=== PATIENT | male | born 1945 | race Caucasian/White ===

== ENCOUNTER 2016-07-14 09:27 | Inpatient (IN) | payer OTHER ==
[2016-07-14] MEDS ORDERED: NS 1,000 ML IV ONE ×2 (09:33→12:01)
--- NOTE | 2016-07-14 09:36 | EDPHY ---
H & P Time Seen by Provider: 07/14/16 09:32 HPI/ROS: CHIEF COMPLAINT: Confusion, fever HISTORY OF PRESENT ILLNESS: History obtained from the paramedics. This is a 71 -year-old male with a reported history of dementia, insulin-dependent diabetes, and metastatic leukemia for which he is on chemotherapy. His called paramedics this morning when she noted that her had increasing confusion. She checked his temperature and found it to be 103. He was given an aspirin at home. The patient himself has no complaints. REVIEW OF SYSTEMS: Patient unable to provide due to his dementia. Source: Patient, Family, EMS - Medical/Surgical History Hx Asthma: No Hx Chronic Respiratory Disease: No Hx Diabetes: Yes Hx Cardiac Disease: No Hx Renal Disease: No Hx Cirrhosis: No Hx Alcoholism: No Hx HIV/AIDS: No Hx Splenectomy or Spleen Trauma: No Other PMH: !. CML. 2. Dementia. 3. IDDM. 4. HTN. 5. Hyperlipidemia - Social History Smoking Status: Former smoker Additional Social History: He lives with his in [place], [place]. He tells me that he drinks some wine daily. - Physical Exam Exam: General Appearance: Alert. Vital signs reviewed. Blood pressure 156/54 on arrival. Temperature 38. Eyes: Pupils equal and round, no conjunctival injection, no discharge. Anicteric. ENT, Mouth: Mucous membranes are moist, no oropharyngeal erythema or edema. Neck: No lymphadenopathy, supple. Respiratory: Lungs are clear to auscultation; no wheezes, rales, or rhonchi. Cardiovascular: Regular rate and rhythm; no murmur, rub, or gallop. Gastrointestinal: Abdomen is soft and nontender, no masses or organomegaly, bowel sounds normal. Skin: Warm and dry, no rashes on exposed skin, normal color. Back: Nontender to palpation over the thoracolumbar spine. No CVAT. Extremities: No lower extremity edema, no calf tenderness or swelling. Neurological: Alert and oriented to person only. He confabulates when questioned.Moving all four extremities easily and equally. Strength 5/5 all major motor groups. Sensation intact to light touch over all four extremities. Psychiatric: Pleasant. No agitation. Constitutional: Initial Vital Signs Temperature (C) 38.0 C 07/14/16 09:33 Heart Rate 103 H 07/14/16 09:33 Respiratory Rate 18 07/14/16 09:33 Blood Pressure 156/54 H 07/14/16 09:33 O2 Sat (%) 90 L 07/14/16 09:33 O2 Delivery Mode Room Air Allergies/Adverse Reactions: No Known Allergies Allergy (Verified 10/10/15 15:47) Home Medications: Medication Instructions Recorded Ascorbic Acid [Vitamin C 500 mg 1,000 mg PO DAILY 07/14/16 (*)] Calcium Carb W/Vit D [Calcium Carb 500 mg PO DAILY 07/14/16 W/Vit D 500/200 (*)] Cholecalciferol Vit D3 [Vitamin D3 1,000 units PO DAILY 07/14/16 (*)] Donepezil HCl 10 mg PO DAILY 07/14/16 Insulin Glargine [Lantus 100 24 units SC DAILY 07/14/16 UNITS/ML (*)] Insulin Lispro [humALOG LISPRO 100 10 unit SC DAILY PRN 07/14/16 units/ml (*)] Levothyroxine [Synthroid 112 mcg 112 mcg PO DAILY06 07/14/16 (*)] Simvastatin 40 mg PO HS 07/14/16 Vitamin B Complex [B Complex] 1 tab PO DAILY 07/14/16 Azithromycin [Zithromax] 500 mg PO DAILY #5 tablet 07/16/16 Cefuroxime Axetil [Ceftin (*)] 500 mg PO BID #20 tab 07/16/16 Oseltamivir Phosphate [Tamiflu 75 75 mg PO BIDMEAL #6 cap 07/16/16 mg (*)] Medical Decision Making - Diagnostics Imaging: CXR reveiwed by me in PACS. It shows a right mid lobe pneumonia. ED Course/Re-evaluation: 71-year-old male with leukemia, not currently receiving chemotherapy (refused chemotherapy last month). He comes in this morning with fever and worsening confusion. His tells me that he has had a cough that began yesterday. He was noted to be mildly tachypneic and febrile on arrival. Breath sounds were diminished on the right with rhonchi. It was my impression that he likely had an infection with sepsis. He was given Tylenol for fever. Initial lactate was 2.4. White blood cell count mildly elevated. Chest x-ray shows a right midlung infiltrate. He meets criteria for severe sepsis. Based upon an initial presumed weight 70 kg two liters of IV normal saline were ordered in the emergency departmetn (he received some fluids enroute and will have recieved 30 mg/kg IV after the two liters). Repeat lactate was normal. He was given ceftriaxone and azithromycin intravenously for community acquired pneumonia. He is not currently undergoing chemotherapy and is not neutropenic.He is being admitted to the hospitalist service. On repeat examination at approximately 10:00 a.m. is resting comfortably. He has not been hypotensive. He has no new complaints. At approximately noon his temperature, checked by me, is 37.8. He continues to rest comfortably. He is not tachycardic. Differential Diagnosis: Fever in adults including but not limited to pneumonia, urinary tract infection , viral syndrome, and influenza. - Data Points Laboratory Results: Laboratory Results 07/14/16 09:45 07/14/16 09:40 Microbiology Results: MICROBIOLOGY 07/14/16 09:45 Blood Blood Culture - Preliminary 07/14/16 10:20 Blood Blood Culture - Preliminary Medications Given: Discontinued Medications Sodium Chloride (Ns) 1,000 mls @ 0 mls/hr IV ONCE ONE PRN Reason: Wide Open Stop: 07/14/16 09:34 Last Admin: 07/14/16 09:56 Dose: 1,000 mls Azithromycin 500 mg/ Dextrose 255 mls @ 255 mls/hr IV EDNOW ONE PRN Reason: Protocol Stop: 07/14/16 12:11 Last Admin: 07/14/16 13:19 Dose: 255 mls Ceftriaxone Sodium/Dextrose (Rocephin 1 Gm (Premix)) 50 mls @ 100 mls/hr IV EDNOW ONE PRN Reason: Protocol Stop: 07/14/16 11:41 Last Admin: 07/14/16 11:25 Dose: 50 mls Sodium Chloride (Ns) 1,000 mls @ 0 mls/hr IV ONCE ONE PRN Reason: Wide Open Stop: 07/14/16 12:02 Last Admin: 07/14/16 12:10 Dose: 1,000 mls Sodium Chloride (Ns) 1,000 mls @ 100 mls/hr IV CONT ALDAIR Stop: 01/10/17 14:14 Last Admin: 07/15/16 08:08 Dose: 1,000 mls Departure - Departure Disposition: [facility] Inpatient Acute Clinical Impression: Pneumonia Qualifiers: Pneumonia type: due to unspecified organism Laterality: right Lung location: middle lobe of lung Qualified Code(s): J18.1 - Lobar pneumonia, unspecified organism Condition: Fair
[2016-07-14 10:03] LABS: ADD DIFF? YES; ADD MORPH? NO; ADD SCAN? NO; ATYPICAL LYMPHOCYTE FLAG 0 (0-99); FRAGMENT RBC FLAG 0 (0-99); HEMATOCRIT 33.9 % (40.0-51.0); HEMOGLOBIN 12.1 g/dL (13.7-17.5); LEFT SHIFT FLG 0 (0-99); LIPEMIA HEMOLYSIS FLAG 90 (0-99); MEAN CELL HEMOGLOBIN 34.2 pg (27.9-34.1); MEAN CELL HEMOGLOBIN CONCENTR. 35.7 g/dL (32.4-36.7); MEAN CELL VOLUME 95.8 fL (81.5-99.8); MEAN PLATELET VOLUME 12.4 fL (8.7-11.7); PLATELET CLUMPS FLAG 10 (0-99); PLATELET COUNT 109 10^3/uL (150-400); RED BLOOD CELL COUNT 3.54 10^6/uL (4.40-6.38); RED CELL DISTRIBUTION WIDTH 12.3 % (11.5-15.2)
[2016-07-14 10:16] LABS: ANION GAP 14 mEq/L (8-16); BILIRUBIN,TOTAL 1.1 mg/dL (0.1-1.4); CARBON DIOXIDE 19 mEq/l (22-31); CHLORIDE 102 mEq/L (97-110); CREATININE 1.2 mg/dL (0.7-1.3); GLOMERULAR FILTRATION RATE 59; GLUCOSE 372 mg/dL (70-100); SODIUM 135 mEq/L (134-144)
[2016-07-14 10:38] LABS: PLATELET ESTIMATE DECREASED (ADEQ)
[2016-07-14 10:51] LABS: INR 1.18 (0.83-1.16)
[2016-07-14 10:52] LABS: APTT 23.3 SEC (23.0-38.0)
[2016-07-14 10:59] LABS: LACGHOST ORDER
[2016-07-14] MEDS ORDERED: AZITHROMYCIN IV 500 MG in D5W 250 ML IV ONE (11:12)
[2016-07-14 12:45] LABS: COLOR YELLOW; LEUKOCYTE ESTERASE,URINE NEGATIVE (NEGATIVE); NITRITE,URINE NEGATIVE (NEGATIVE)
[2016-07-14 12:49] LABS: MUCUS TRACE /lpf (NONE-1+)
[2016-07-14] MEDS ORDERED: ONDANSETRON 4 MG/2 ML VIAL IVP PRN (14:01)
[2016-07-14] MEDS ORDERED: ACETAMINOPHEN 325 MG TAB PO PRN (14:01)
--- NOTE | 2016-07-14 14:36 | GHP ---
[f rep st] HISTORY AND PHYSICAL DATE OF ADMISSION: 07/14/2016 CHIEF COMPLAINT: Fever and confusion. HISTORY OF PRESENT ILLNESS: The patient is a 71-year-old male with advanced dementia, lives with sc s . She noted him to have increasing confusion, and he had a fever at home of 103. The is currently in transit going home and not currently available. The patient is quite pleasant but con fabulatory, an unreliable historian. He denies any cough or any other significant recent illnesses, but he is also completely disoriented regarding time and space. He is currently without complaints and states that he feels quite well. PAST MEDICAL HISTORY: 1. CML by chart review; he is refusing chemotherapy. 2. Dementia. 3. Diabetes. 4. Hypertension. 5. Hyperlipidemia. MEDICATIONS: Please see computer record for full detailed list. ALLERGIES: No known drug allergies. SOCIAL HISTORY: He states he used smoke. He claims half a glass of wine per day. He lives with sc s . REVIEW OF SYSTEMS: Complete review of systems obtained. Review of systems is negative regarding co nstitutional, HEENT, GI, pulmonary, cardiovascular, , hematology, skin, musculoskeletal, endocrine , and psychiatric, except for positives as noted in HPI. FAMILY HISTORY: Not reliable due to patient's advanced dementia. PHYSICAL EXAMINATION: GENERAL: Well-developed, well-nourished male, in no acute distress. VITAL S IGNS: Temperature is 38.0, pulse 103, blood pressure 119/59, saturating 91% on 2 L. EYES: Normal conjunctivae. Pupils react to light. ENT: Normal ears and nose. Hearing intact. Normal lips and teeth. Oropharynx moist. NECK: Trachea midline. No thyromegaly. CHEST: Normal respiratory eff ort. LUNGS: Clear to auscultation bilaterally. CARDIOVASCULAR: Regular rate and rhythm. No murm ur. No lower extremity edema. ABDOMEN: Soft, nontender. No hepatosplenomegaly. SKIN: Warm, dry , intact. No rash. MUSCULOSKELETAL: No cyanosis or clubbing. Strength 5/5 upper and lower extrem ities. NEUROLOGIC: Cranial nerves intact. Normal sensation to light touch. PSYCH: He is alert a nd oriented x1, is very pleasant, confabulatory, friendly. When asked any type of question, he trie s to look up at the white board and reads what it states on the white board and then makes a funny j modesto as to why it is the wrong answer. Poor judgment and insight. Poor memory. LABORATORY DATA: White count 11.9, hematocrit 33.9, platelets 109. Sodium 135, potassium 4.0, chlo ride 102, bicarb 19, BUN 21, creatinine 1.2, glucose 372. Lactate 2.4, urinalysis negative. INR is 1.18. Chest x-ray reviewed by me. My personal interpretation is right-sided infiltrate. ASSESSMENT/PLAN: 1. Pneumonia with severe sepsis. I suspect this is a community-acquired pneumonia. Will continue ceftriaxone and azithromycin. 2. Metabolic encephalopathy. He is confused beyond his normal baseline dementia. 3. Dementia. I suspect this is quite advanced. 4. Chronic myelogenous leukemia. According to ER reports, he has refused chemotherapy recently. T his can be clarified when his is available. 5. Diabetes type 2. We will place on an insulin sliding scale for now. Hydrate with IV fluids and reconcile home medications. CODE STATUS: Full, although this is by default and should clarify code status when his is angela malloy. ADMISSION STATUS: I will admit to inpatient as I anticipate he will require greater than 2 midnight s for stability to return home. DVT PROPHYLAXIS: He is high risk. I will place him on subcu Lovenox. /[id number]/MODL
[2016-07-14] MEDS ORDERED: D50W 25 GM/50 ML SYR IVP PRN (19:27)
[2016-07-14] MEDS: NS 1,000 ML IV SCH (20:40)
[2016-07-14] MEDS: INSULIN GLARGINE 100 UNITS/ML SYRINGE SC SCH (20:40)
[2016-07-14] MEDS: OSELTAMIVIR PHOSPHATE 75 MG CAP PO SCH (20:41)
[2016-07-14] MEDS: ATORVASTATIN CALCIUM 20 MG TAB PO SCH (20:41)
[2016-07-15] MEDS: traZODone 50 MG TAB PO SCH ×2 (01:45→21:09)
[2016-07-15] MEDS: LEVOTHYROXINE 112 MCG TAB PO SCH (04:41)
[2016-07-15 05:14] LABS: ADD DIFF? YES; ADD MORPH? NO; ADD SCAN? NO; ATYPICAL LYMPHOCYTE FLAG 0 (0-99); FRAGMENT RBC FLAG 0 (0-99); HEMATOCRIT 28.5 % (40.0-51.0); HEMOGLOBIN 9.9 g/dL (13.7-17.5); LEFT SHIFT FLG 10 (0-99); LIPEMIA HEMOLYSIS FLAG 90 (0-99); MEAN CELL HEMOGLOBIN 34.7 pg (27.9-34.1); MEAN CELL HEMOGLOBIN CONCENTR. 34.7 g/dL (32.4-36.7); MEAN PLATELET VOLUME 12.6 fL (8.7-11.7); PLATELET CLUMPS FLAG 10 (0-99); PLATELET COUNT 97 10^3/uL (150-400); RED BLOOD CELL COUNT 2.85 10^6/uL (4.40-6.38); RED CELL DISTRIBUTION WIDTH 12.4 % (11.5-15.2)
[2016-07-15 05:31] LABS: ANION GAP 11 mEq/L (8-16); CARBON DIOXIDE 18 mEq/l (22-31); CHLORIDE 103 mEq/L (97-110); CREATININE 1.2 mg/dL (0.7-1.3); GLOMERULAR FILTRATION RATE 59; GLUCOSE 242 mg/dL (70-100); SODIUM 132 mEq/L (134-144)
[2016-07-15 06:54] LABS: PLATELET ESTIMATE DECREASED (ADEQ)
[2016-07-15 06:55] LABS: MACROCYTES 1+
[2016-07-15 06:56] LABS: HYPOCHROMIA 1+
[2016-07-15] MEDS: NS 1,000 ML IV SCH (08:08)
[2016-07-15] MEDS: AZITHROMYCIN IV 500 MG in D5W 250 ML IV SCH (08:08)
[2016-07-15] MEDS: INSULIN LISPRO 100 UNIT/ML SC SCH ×3 (08:36→17:39)
[2016-07-15] MEDS: OSELTAMIVIR PHOSPHATE 75 MG CAP PO SCH ×2 (08:39→18:31)
[2016-07-15] MEDS: DONEPEZIL HCL 5 MG TAB PO SCH (08:39)
[2016-07-15] MEDS: ENOXAPARIN 40 MG/0.4 ML SYR SC SCH (08:39)
--- NOTE | 2016-07-15 19:36 | HOSPPROG ---
Hospitalist Progress Note Assessment/Plan: * Influenza B -Tamiflu * PNA - suspect secondary bacterial - with severe sepsis -ceftriaxone, azithro * Metabolic encephalopathy -improved * Dementia - advanced * CML - off treatment * DM II -home meds Subjective: much better today. Walking well. Mental status still not back to baseline Objective: Vital Signs Temp Pulse Resp BP Pulse Ox 36.3 C 76 20 128/65 H 93 07/15/16 16:00 07/15/16 16:00 07/15/16 16:00 07/15/16 16:00 07/15/16 16:00 Laboratory Results 07/15/16 04:30 07/15/16 04:30 07/14/16 07/15/16 07/16/16 05:59 05:59 05:59 Intake Total 2080 500 Balance 2079 500 PT 15.0 SEC (12.0-15.0) 07/14/16 10:20 INR 1.18 (0.83-1.16) H 07/14/16 10:20 - Physical Exam Constitutional: no apparent distress, appears nourished, not in pain Cardiovascular: regular rate and rhythym, no murmur, rub, or gallop Respiratory: no respiratory distress, no rales or rhonchi, clear to auscultation Gastrointestinal: normoactive bowel sounds, soft, non-tender abdomen, no palpable masses Skin: no rashes or abrasions, no fluctuance, no induration Psychiatric: interacting appropriately, not anxious, encephalopathic, poor insight, poor judgement, poor memory, No agitated ICD10 Worksheet Patient Problems: Problems Problem Status Onset Pneumonia Acute
[2016-07-15] MEDS ORDERED: FAMOTIDINE 20 MG TAB PO SCH (21:00)
[2016-07-15] MEDS: ATORVASTATIN CALCIUM 20 MG TAB PO SCH (21:09)
[2016-07-15] MEDS: INSULIN GLARGINE 100 UNITS/ML SYRINGE SC SCH (21:10)
[2016-07-16] MEDS: LEVOTHYROXINE 112 MCG TAB PO SCH (04:45)
[2016-07-16 05:05] LABS: % IMMATURE GRANULYOCYTES 1.1 % (0.0-1.1); ABSOLUTE IMMATURE GRANULOCYTES 0.16 10^3/uL (0.00-0.10); ADD DIFF? NO; ADD MORPH? NO; ADD SCAN? NO; ATYPICAL LYMPHOCYTE FLAG 0 (0-99); FRAGMENT RBC FLAG 0 (0-99); HEMATOCRIT 29.1 % (40.0-51.0); HEMOGLOBIN 10.5 g/dL (13.7-17.5); LEFT SHIFT FLG 0 (0-99); LIPEMIA HEMOLYSIS FLAG 90 (0-99); MEAN CELL HEMOGLOBIN 34.8 pg (27.9-34.1); MEAN CELL HEMOGLOBIN CONCENTR. 36.1 g/dL (32.4-36.7); MEAN CELL VOLUME 96.4 fL (81.5-99.8); MEAN PLATELET VOLUME 12.2 fL (8.7-11.7); PLATELET CLUMPS FLAG 10 (0-99); PLATELET COUNT 93 10^3/uL (150-400); RED BLOOD CELL COUNT 3.02 10^6/uL (4.40-6.38); RED CELL DISTRIBUTION WIDTH 12.2 % (11.5-15.2)
[2016-07-16 05:15] LABS: ANION GAP 10 mEq/L (8-16); CALCIUM 8.5 mg/dL (8.5-10.4); CARBON DIOXIDE 18 mEq/l (22-31); CHLORIDE 103 mEq/L (97-110); CREATININE 1.2 mg/dL (0.7-1.3); GLOMERULAR FILTRATION RATE 59; GLUCOSE 170 mg/dL (70-100); POTASSIUM 3.9 mEq/L (3.5-5.2); SODIUM 131 mEq/L (134-144)
[2016-07-16] MEDS: DONEPEZIL HCL 5 MG TAB PO SCH (08:22)
[2016-07-16] MEDS: INSULIN LISPRO 100 UNIT/ML SC SCH ×2 (08:23→13:45)
[2016-07-16] MEDS: OSELTAMIVIR PHOSPHATE 75 MG CAP PO SCH (08:23)
[2016-07-16] MEDS: AZITHROMYCIN IV 500 MG in D5W 250 ML IV SCH (08:24)
[2016-07-16 08:26] VITALS: BP 141/64; PULSE 83; RESP 16; TEMP 98.7; O2SAT 94
[2016-07-16] MEDS: ENOXAPARIN 40 MG/0.4 ML SYR SC SCH (08:32)
--- NOTE | 2016-07-16 18:58 | GDS ---
[f rep st] DISCHARGE SUMMARY DIAGNOSES: 1. Influenza B. 2. Secondary bacterial pneumonia with severe sepsis. 3. Metabolic encephalopathy. 4. Advanced dementia. 5. Chronic myelogenous leukemia. 6. Diabetes type 2. HISTORY: The patient is a 71-year-old male, who presented with fever and confusion. He was diagnos ed with pneumonia. His influenza B was positive. It is suspected he has a secondary bacterial pneu monia. He did qualify for severe sepsis, but resolved pretty quickly with IV fluids. He was treate d with ceftriaxone and azithromycin, had pretty rapid improvement. His main presenting complaint wa s metabolic encephalopathy superimposed on a severe advanced dementia. He does live at home with hi s and she could not care for him at his presenting state. He rapidly improved over the next 48 hours back to baseline and she was able to take him home. We will continue a course of therapy wit h Tamiflu, as well as antibiotics in the form of oral Ceftin and azithromycin post discharge. DISCHARGE MEDICATIONS: Please see computer record for full detailed list. New medications: 1. Tamiflu 75 mg p.o. b.i.d. for 3 more days. 2. Ceftin 500 mg p.o. b.i.d. for 5 days. 3. Azithromycin 500 mg p.o. daily for 5 days. ADDITIONAL DISCHARGE INSTRUCTIONS: Follow up with primary care. Greater than 30 minutes' time was spent arranging this discharge. /[id number]/MODL
== END 2016-07-16 16:21 | disposition home or self-care (01) | DRG 871 ==
LOC: EDUNIT# → UNDOADMIN 11:23 → F3E 13:05
PROVIDERS: ADMIT Internal Medicine; ATTEND Internal Medicine
DX: A41.89 Other specified sepsis (principal); R65.20 Severe sepsis without septic shock; J10.08 Influenza due to other identified influenza virus with other specified pneumonia; J15.9 Unspecified bacterial pneumonia; F03.90 Unspecified dementia, unspecified severity, without behavioral disturbance, psychotic disturbance, mood disturbance, and anxiety; E11.9 Type 2 diabetes mellitus without complications; Z79.4 Long term (current) use of insulin; C92.10 Chronic myeloid leukemia, BCR/ABL-positive, not having achieved remission; E78.5 Hyperlipidemia, unspecified; I10 Essential (primary) hypertension
CPT/HCPCS: 82947-QW; 96365; 97161-GP; 97165-GO; G8978-GP-CI; G8979-GP-CI; G8987-GO-CI; G8988-GO-CI; G8989-GO-CI; J0456; J0696; J1650; J1815

== ENCOUNTER → 2016-09-24 | Outpatient (CLI) | payer OTHER | LOC: BHFA 16:00 | PROVIDERS: ATTEND Internal Medicine Cardiovascular Disease | DX: R55 Syncope and collapse (principal) ==

== ENCOUNTER → 2016-11-06 | Outpatient (CLI) | payer OTHER | LOC: BHLMT 14:00 | PROVIDERS: ATTEND Internal Medicine Cardiovascular Disease | DX: R55 Syncope and collapse (principal) | CPT/HCPCS: 78452; 93017; A9500; J2785 ==

== ENCOUNTER 2016-11-11 09:54 | Day surgery (SDC) | payer OTHER ==
[2016-11-11] MEDS ORDERED: diphenhydrAMINE 25 MG CAP PO ONE (10:02)
[2016-11-11] MEDS ORDERED: NS 1,000 ML IV ONE (10:02)
[2016-11-11] MEDS ORDERED: ASPIRIN EC 325 MG TAB PO ONE (10:02)
[2016-11-11] MEDS ORDERED: DIAZEPAM 5 MG TAB PO ONE (10:02)
[2016-11-11] MEDS ORDERED: FAMOTIDINE 20 MG TAB PO ONE (10:02)
--- NOTE | 2016-11-11 10:25 | CPEKG ---
Heart Rate: 68 RR Interval: 882 P-R Interval: 156 QRSD Interval: 146 QT Interval: 420 QTC Interval: 447 P [place]: 35 QRS [place]: -29 T Wave [place]: 25 EKG Severity - ABNORMAL ECG - EKG Impression: SINUS RHYTHM EKG Impression: RBBB AND LAFB EKG Impression: UNCHANGED IN COMPARISON TO PRIOR Electronically Signed By: Emanuel Sandhu 11-Nov-2016 12:21:27
[2016-11-11] MEDS ORDERED: LIDOCAINE 1% 300 MG/30 ML SDV ONE (10:47)
[2016-11-11] MEDS ORDERED: fentaNYL 100 MCG/2 ML INJ ONE (10:47)
[2016-11-11] MEDS ORDERED: MIDAZOLAM 2 MG/2 ML VIAL ONE (10:48)
[2016-11-11] MEDS ORDERED: VERAPAMIL 5 MG/2 ML VIAL ONE (10:48)
[2016-11-11] MEDS ORDERED: IOPAMIDOL (ISOVUE-370) 150 ML BTL IV ONE (10:48)
[2016-11-11] MEDS ORDERED: HEPARIN 10,000 UNIT/10 ML MDV ONE (10:48)
[2016-11-11 10:58] LABS: ABSOLUTE NRBC COUNT 0.02 10^3/uL (0-0.01); ADD DIFF? YES; ADD MORPH? NO; ADD SCAN? NO; ATYPICAL LYMPHOCYTE FLAG 20 (0-99); FRAGMENT RBC FLAG 0 (0-99); LEFT SHIFT FLG 0 (0-99); LIPEMIA HEMOLYSIS FLAG 90 (0-99); MEAN CELL HEMOGLOBIN 34.5 pg (27.9-34.1); MEAN CELL HEMOGLOBIN CONCENTR. 34.6 g/dL (32.4-36.7); MEAN CELL VOLUME 99.6 fL (81.5-99.8); MEAN PLATELET VOLUME 11.4 fL (8.7-11.7); NRBC-AUTO% 0.6 % (0.0-0.2); PLATELET CLUMPS FLAG 0 (0-99); PLATELET COUNT 116 10^3/uL (150-400); RED BLOOD CELL COUNT 2.61 10^6/uL (4.40-6.38); RED CELL DISTRIBUTION WIDTH 13.1 % (11.5-15.2)
[2016-11-11 11:01] LABS: ANION GAP 9 mEq/L (8-16); CARBON DIOXIDE 23 mEq/l (22-31); CHLORIDE 106 mEq/L (97-110); CHOLESTEROL 138 mg/dL (140-220); CHOLESTEROL/HDL RATIO 2.12 RATIO (1.00-4.97); CREATININE 1.1 mg/dL (0.7-1.3); GLOMERULAR FILTRATION RATE > 60; GLUCOSE 201 mg/dL (70-100); HIGH DENSITY LIPOPROTEIN 65 mg/dL (40-65); LDL/HDL RATIO 0.92 RATIO (1.00-3.64); LOW DENSITY LIPOPROTEIN 60 mg/dL (80-100); MAGNESIUM 1.6 mg/dL (1.6-2.3); NON-HIGH DENSITY LIPOPROTEIN 73 mg/dL (90-129); POTASSIUM 4.7 mEq/L (3.5-5.2); SODIUM 138 mEq/L (134-144); TRIGLYCERIDE 69 mg/dL (40-150); VERY LOW DENSITY LIPOPROTEINS 13 mg/dL (8-25)
[2016-11-11 11:09] LABS: INR 1.01 (0.83-1.16); PROTIME(PATIENT) 13.2 SEC (12.0-15.0)
[2016-11-11 11:35] LABS: PLATELET ESTIMATE DECREASED (ADEQ)
--- NOTE | 2016-11-11 12:42 | PDDXCAT ---
Diagnostic Cath Note - . Date: 11/11/16 Employee Development Manager: Matthias Indication: High-risk criteria on noninvasive testing (choose option below) High-risk criteria on non-invasive testing: stress-induced large perfusion defect (particularly if anterior) - Procedure Access: right groin Procedure: left heart catheterization, coronary angiography, left ventriculogram - Materials Left Heart Cath size: 6F Left Heart Cath materials: JL3.5, JR4.0, pigtail - Findings-Left Heart Catheterization LM: Normal. Appropriate bifurcation into the left anterior descending and circumflex. LAD: Large caliber. Single principal diagonal branch. Long mid area of disease up to 30%. LCX: Moderate caliber vessel. Single obtuse marginal branch and posterolateral branch. Mild luminal irregularities in the mid vessel up to 20-30%. RCA: Dominant. PDA and small posterolateral branch identified. Minimal luminal irregularities up to 20% in the proximal vessel. EDP: 18 mm Hg. LVEF: 70%. Wall motion: Normal. - Findings-Right Heart Catheterization AO: 156 /57 / 93 mmHg. Complications: None. Estimated blood loss: <50ml Closure method: Angioseal Assessment: Minimal, nonobstructive CAD. Normal ejection fraction . No significant valvular heart disease identified. Plan: Medical management. The patient will be evaluated for an alternate etiology to syncope. Intervention: None. Patient Problems: Problems Problem Status Onset Pneumonia Acute
== END 2016-11-11 16:00 | disposition home or self-care (01) ==
LOC: FCATH 09:54
PROVIDERS: ATTEND Internal Medicine Cardiovascular Disease
PROC: B2111ZZ Fluoroscopy of Multiple Coronary Arteries using Low Osmolar Contrast (ICD-10-PCS; principal; 2016-11-11)
PROC: B2151ZZ Fluoroscopy of Left Heart using Low Osmolar Contrast (ICD-10-PCS; principal; 2016-11-11)
PROC: 4A023N8 Measurement of Cardiac Sampling and Pressure, Bilateral, Percutaneous Approach (ICD-10-PCS; principal; 2016-11-11)
DX: R55 Syncope and collapse (principal); E11.22 Type 2 diabetes mellitus with diabetic chronic kidney disease; N18.3 Chronic kidney disease, stage 3 (moderate); E78.5 Hyperlipidemia, unspecified; E03.9 Hypothyroidism, unspecified
CPT/HCPCS: C1760; J1644; J2250; J3010; Q9967